=== PATIENT | male | born 1965 | race Caucasian/White ===

== ENCOUNTER → 2016-07-16 | Outpatient (CLI) | payer BC ==
[~2016-07-16] MED LIST: CPR500T PO; HYDR-3583 PO; METR500T PO; MULT-241 PO
--- NOTE | 2016-07-16 16:50 | Diagnostic Imaging Report ---
EXAMINATION: Three views of the lumbar spine. INDICATION: Back pain. FINDINGS: There is suggestion of a mild compression fracture at the T12 level. There is vertebral body height loss seen at T12 suggested based on the CT scan of the abdomen and pelvis of 2010. This could be chronic. There are preserved vertebral body heights in the lumbar spine. The discs demonstrate moderate disc height loss and degenerative sclerosis at L5-S1 with minimal posterior osteophytes. Vacuum phenomenon is also seen. The other disc levels appear normal. The SI joints appear unremarkable. IMPRESSION: 1. Degenerative disc changes with suggestion of small posterior osteophytes at L5-S1. 2. Mild compression fracture of T12, favored to be chronic. 3. Consider MRI of the lumbar spine if symptoms persist. Dictated by: Dictated on workstation # [id number]
== END ==
LOC: RAD 16:22
DX: M51.37 Other intervertebral disc degeneration, lumbosacral region (principal)
CPT/HCPCS: 72100

== ENCOUNTER → 2016-07-18 | Outpatient (CLI) | payer BC ==
--- NOTE | 2016-07-18 09:25 | Diagnostic Imaging Report ---
PROCEDURE: CT abdomen and pelvis without contrast. TECHNIQUE: Multiple contiguous axial images were obtained through the abdomen and pelvis without the use of intravenous contrast. INDICATION: Right lower quadrant pain. FINDINGS: The lung bases are clear. Liver appears normal. There is a tiny calculus layering out in the dependent portion of the gallbladder. Common duct is not dilated. Pancreas appears normal. Spleen is not enlarged. Adrenals are normal. There is a 2 mm calculus in the lower pole calyx of left kidney. There is a small cyst in the lateral aspect of the right kidney. There is calcific atherosclerosis of the aorta but no aneurysm. There is no evidence for appendicitis. Small bowel is not dilated. Colon appears normal. There is no intraperitoneal free air or free fluid. Urinary bladder and prostate appear normal. IMPRESSION: Atherosclerosis. Cholecystolithiasis. Left nephrolithiasis. No acute abnormality seen. Dictated by: Dictated on workstation # [id number]
--- NOTE | 2016-07-18 10:43 | Diagnostic Imaging Report ---
PROCEDURE: MRI lumbar spine. TECHNIQUE: Multiplanar, multisequence MRI of the lumbar spine was performed without contrast. INDICATION: Low back pain. FINDINGS: There is satisfactory alignment of the lumbar spine. The vertebral body heights are preserved. There is mild disc desiccation at all levels more prominent in the lower lumbar spine. There is also moderate disc height loss at L5/S1. Multilevel Schmorl's nodes are seen which appears to be chronic. There are Modic type I and III changes along the endplates around L5/S1 disc with no suspicious marrow signal abnormality. The cauda equina and conus medullaris appear grossly unremarkable. T12/L1: No disc herniation, no spinal canal or foraminal stenosis. L1/2: No disc herniation, no spinal canal or foraminal stenosis. L2/3: No disc herniation, no spinal canal or foraminal stenosis. L3/4: No disc herniation, no spinal canal or foraminal stenosis. L4/5: There is a mild disc bulge. There is mild to moderate facet and ligamentous hypertrophy. No central canal stenosis. There is mild stenosis of the left lateral recess. The right lateral recess is patent. There is minimal stenosis in the neural foramina. L5/S1: There is a diffuse disc bulge with a superimposed central protrusion associated with an annular tear and minimal caudal migration component. There is mild facet hypertrophy bilaterally. No central canal or lateral recess stenosis. The foramina demonstrate mild to moderate narrowing bilaterally. IMPRESSION: Prominent disc herniation at L5/S1 level with no significant spinal canal stenosis. No high-grade spinal canal or foraminal stenosis seen at any level. Dictated by: Dictated on workstation # [id number]
== END ==
LOC: RAD 08:56
DX: R10.31 Right lower quadrant pain (principal); N20.0 Calculus of kidney; K80.10 Calculus of gallbladder with chronic cholecystitis without obstruction; M51.27 Other intervertebral disc displacement, lumbosacral region
CPT/HCPCS: 72148; 74176

== ENCOUNTER → 2016-07-31 | Outpatient (CLI) | payer BC ==
[~2016-07-31] MED LIST changes: +CETI10TA20 PO; +CITA10TA7 PO; +LEVO75TA6 PO; +MONT10TA24 PO
--- NOTE | 2016-07-31 14:31 | Diagnostic Imaging Report ---
EXAMINATION: DEXA scan. INDICATION: Osteopenia TECHNIQUE: Bone mineral density estimated based on dual energy radiography over the lumbar spine and femoral necks, was performed. FINDINGS: The lumbar spine T-score is -0.6. T score over the left femoral neck is -0.5 and on the right side is -0.7. IMPRESSION: Bone mineral density is near the lower limits of normal. Dictated by: Dictated on workstation # [id number]
== END ==
LOC: RAD 10:08
DX: M81.0 Age-related osteoporosis without current pathological fracture (principal)
CPT/HCPCS: 77080

== ENCOUNTER 2016-08-01 06:19 | Outpatient (CLI) | payer BC ==
[~2016-08-01] VITALS: Ht 172.7 cm; Wt 86.2 kg
[~2016-08-01 06:19] MED LIST changes: -CETI10TA20 PO; -CITA10TA7 PO; -LEVO75TA6 PO; -MONT10TA24 PO
[2016-08-01] MEDS ORDERED: CITA10TA7 PO (11:23)
[2016-08-01] MEDS ORDERED: LEVO75TA6 PO (11:23)
[2016-08-01] MEDS ORDERED: MONT10TA24 PO (11:23)
[2016-08-01] MEDS ORDERED: CETI10TA20 PO (11:23)
== END 2016-08-01 11:28 ==
LOC: PREOP 06:19
PROVIDERS: ATTEND Surgery
DX: Z01.818 Encounter for other preprocedural examination (principal); I50.9 Heart failure, unspecified; K62.5 Hemorrhage of anus and rectum; Z86.010 Personal history of colon polyps

== ENCOUNTER 2016-08-04 10:52 | Day surgery (SDC) | payer BC ==
[~2016-08-04] VITALS: Ht 172.7 cm; Wt 86.2 kg
[~2016-08-04 10:52] MED LIST changes: +CETI10TA20 PO; +CITA10TA7 PO; +LEVO75TA6 PO; +MONT10TA24 PO
[2016-08-04] MEDS ORDERED: NS IV 500 ML 500 ML ONE (10:58)
[2016-08-04] MEDS ORDERED: NALOXONE 0.4 MG/ML 1 ML (NARCAN) VIAL IVP PRN (11:15)
[2016-08-04] MEDS ORDERED: NS IV 500 ML 500 ML IV PRN (11:15)
[2016-08-04] MEDS ORDERED: HURRICAINE EXT TUBE (BENZOCAINE) XX PRN (11:15)
[2016-08-04] MEDS ORDERED: FLUMAZENIL (ROMAZICON) 0.1 MG/ML 5 ML VIAL INJ PRN (11:15)
[2016-08-04 11:51] VITALS: BP 136/84
[2016-08-04] MEDS ORDERED: fentaNYL INJECTION 100 MCG/2 ML AMP ONE ×2 (12:14)
[2016-08-04] MEDS ORDERED: MIDAZOLAM 2 MG/2 ML (VERSED) VIAL ONE ×4 (12:14→12:15)
[2016-08-04] MEDS ORDERED: HURRICAINE EXT TUBE (BENZOCAINE) ONE (12:15)
--- NOTE | 2016-08-04 12:17 | Conscious Sedation/ASA ---
Conscious Sedation Pre-Proced Time Reviewed: 12:17 ASA Class: 2 Airway Mallampati Classification: ([place] appropriate class) I. II. III, IV Lungs Heart ASA score ASA 1: a normal healthy patient ASA 2: a patient with a mild systemic disease (mid diabetes, controlled hypertension, obesity ASA 3: a patient with a severe systemic disease that limits activity (angina , COPD, prior Myocardial infarction) ASA 4: a patient with an incapacitating disease that is a constant threat to life (CHF, renal failure) ASA 5: a moribund patient not expected to survive 24 hrs. (ruptured aneurysm) ASA 6: a declared brain patient whose organs are being harvested. For emergent operations, add the letter E after the classification Grade 2 Sedation Plan: Discussed options with patient/fam Note The patient is an appropriate candidate to undergo the planned procedure, sedation, and anesthesia. The patient immediately re-assessed prior to indication. ANDREIA ZACARIAS MD Aug 04, 2016 12:17 pm
[2016-08-04] MEDS: fentaNYL INJECTION 100 MCG/2 ML AMP IVP PRN ×4 (12:24→12:40)
[2016-08-04] MEDS: MIDAZOLAM 2 MG/2 ML (VERSED) VIAL IVP PRN ×4 (12:25→12:41)
--- NOTE | 2016-08-04 12:53 | Endoscopy Procedure Report ---
Endoscopy Report Date: Aug 04, 2016 Preoperative Diagnosis: iron deficiency anemia. Rectal bleeding Study Performed: Upper Endoscopy, Colonoscopy Procedure Instrument: Endoscope Endo Procedure/Findings Findings 1.: Internal Hemorrhoids, Gastric Ulcer Recommendations: Recommendations: 1.: Start Medication(s) Copy Copies To 1: THERESE CALDWELL MD, XAVIER M MD Aug 04, 2016 12:53 pm
[2016-08-04] MEDS ORDERED: PANT40TA2 PO (12:55)
--- NOTE | 2016-08-04 12:57 | Discharge Inst-Simple/Standard ---
Discharge Inst-Standard Discharge Medications New, Converted or Re-Newed RX: RX on Chart Patient Instructions/Follow Up Plan of Care/Instructions/FU: ffollow-up with his primary. To avoid nonsteroidals Activity as Tolerated: Yes Discharge Diet: No Restrictions ANDREIA ZACARIAS MD Aug 04, 2016 12:56 pm
[2016-08-04 13:30] VITALS: BP 125/78
[2016-08-04 14:00] VITALS: BP 111/75
--- NOTE | 2016-08-04 23:56 | OPERATIVE REPORT ---
DATE OF SERVICE: 08/04/2016 PROCEDURES: 1. Upper GI endoscopy with antral biopsy. 2. Colonoscopy. SURGEON: Andreia Zacarias M.D. INDICATION FOR PROCEDURE: This gentleman came in for an upper endoscopy to evaluate iron deficiency anemia. Colonoscopy to investigate intermittent rectal bleeding. Informed consent was obtained after reviewing the procedures in detail. DESCRIPTION OF PROCEDURE: Upper GI endoscopy/antral biopsy: He was placed in left lateral decubitus position and his vital signs were monitored. Conscious sedation was achieved using Versed and fentanyl. The flexible gastroscope was then introduced down the esophagus, past through the stomach, into the proximal duodenum. FINDINGS: ESOPHAGUS: A short hiatal hernia with minimal esophagitis. STOMACH: A total of 3 distal gastric erosions with erythema around them were found. Biopsy for H. pylori was obtained. DUODENUM: Changes of duodenitis were found along the first part. He tolerated the procedure well and was turned around in preparation for colonoscopy. IMPRESSION: Iron deficiency anemia, distal gastric erosions. Helicobacter status pending. PROCEDURE Colonoscopy. Examination of the perianal area was negative for any fissure, which the patient reported in the past. Digital examination was otherwise unremarkable. The colonoscope was then introduced into the rectum and advanced all the way up to the cecum. The scope was then withdrawn slowly and the mucosa examined in a systematic fashion. FINDINGS: Internal hemorrhoids, the source of his bleeding, but no polyps were found. He tolerated the procedures well and was taken back to the nursing area in stable condition. IMPRESSION: Rectal bleeding due to hemorrhoids. No polyps. Job ID: [id number] DocumentID: [id number] Dictated Date: 08/04/2016 12:53:21 Professor Of Theatre Date: 08/04/2016 23:33:52 Dictated By: ANDREIA ZACARIAS MD [facility]
== END 2016-08-04 14:30 | disposition home or self-care (01) ==
LOC: ENDO 10:52
PROVIDERS: ATTEND Surgery
DX: K25.7 Chronic gastric ulcer without hemorrhage or perforation (principal); K64.8 Other hemorrhoids; D50.9 Iron deficiency anemia, unspecified; Z86.010 Personal history of colon polyps

== ENCOUNTER 2016-08-04 10:58 | Outpatient (RCR) | payer BC ==
[2016-07-25] MEDS: IRON SUCROSE 200 MG/NS 100 ML (IVPB) IV SCH ×2 (13:50)
[2016-07-25 14:45] VITALS: BP 130/84
[2016-07-28] MEDS: IRON SUCROSE 200 MG/NS 100 ML (IVPB) IV SCH ×2 (12:45)
[2016-07-28 13:10] VITALS: BP 130/74
[2016-07-30] MEDS: IRON SUCROSE 200 MG/NS 100 ML (IVPB) IV SCH ×2 (13:50)
[2016-07-30 14:17] VITALS: BP 132/80
[2016-08-01] MEDS: IRON SUCROSE 200 MG/NS 100 ML (IVPB) IV SCH ×2 (13:54)
[2016-08-01 14:20] VITALS: BP 126/89
--- NOTE | 2016-08-01 16:43 | Physician Query-Final Dx ---
NATHAN STEPHEN 08/01/16 1643: Clinic Account Progress/Dx Physician Query: Please give diagnosis Please give a diagnosis for the Venofer treatment thank you Date of Service Aug 01, 2016 at 13:42 ANDREW ALVAREZ 08/22/16 0901: NATHAN STEPHEN Aug 01, 2016 16:43 ANDREW ALVAREZ Aug 22, 2016 09:01
[~2016-08-04] VITALS: Ht 172.7 cm; Wt 86.2 kg
[~2016-08-04 10:58] MED LIST changes: +IRON SUCROSE 200 MG/10 ML (VENOFER) VIAL IV ONE; +NS (IVPB) 100 ML ONE; +NS (IVPB) 50 ML ONE
[2016-08-04] MEDS: IRON SUCROSE 200 MG/NS 100 ML (IVPB) IV SCH ×2 (11:10)
[2016-08-04 11:40] VITALS: BP 136/84
[2016-08-04] MEDS ORDERED: PANT40TA2 PO (12:55)
== END 2016-10-23 | disposition home or self-care (01) ==
LOC: SDC 10:58
DX: D50.8 Other iron deficiency anemias (principal)
CPT/HCPCS: 96365

== ENCOUNTER 2016-11-01 14:45 | Emergency (ER) | payer BC ==
[~2016-11-01] VITALS: Ht 172.7 cm; Wt 86.2 kg
[~2016-11-01 14:45] MED LIST changes: -IRON SUCROSE 200 MG/10 ML (VENOFER) VIAL IV ONE; -NS (IVPB) 100 ML ONE; -NS (IVPB) 50 ML ONE; +PANT40TA2 PO
[2016-11-01] MEDS ORDERED: FLUT16SP22 (15:46)
[2016-11-01] MEDS ORDERED: HYDR-3820 (15:46)
[2016-11-01] MEDS ORDERED: LEVO100T7 (15:46)
[2016-11-01] MEDS ORDERED: morphine INJ 10 MG/ML 1ML (SYR OR VIAL) IM STA (15:50)
--- NOTE | 2016-11-01 15:53 | ED Upper Extremity ---
General Chief Complaint: Upper Extremity Stated Complaint: RT ARM PAIN POST SURGERY Nursing Triage Note: ARRIVED VIA AMB TO ROOM 09. COMPLAINS OF SEVERE RIGHT ELBOW PAIN WITH SWELLING INTO HAND. PT HAD SURGERY ON ELBOW YESTERDAY AT [facility]. STATES HE HAS BEEN TAKING HYDROCODONE 10'S THAT ARE NOT HELPING. LAST DOSE WAS AT 1230. 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 Nursing Sepsis Screen: No Definite Risk Allergies and Home Medications Allergies Coded Allergies: Penicillins (Unverified Allergy, Unknown, 08/01/16) Sulfa (Sulfonamide Antibiotics) (Unverified Allergy, Unknown, 08/01/16) Home Medications Fluticasone Propionate 16 Gm [place].susp, (Reported) Hydrocodone/Acetaminophen 1 Each Tablet, (Reported) Levothyroxine Sodium 100 Mcg Tablet, (Reported) Pantoprazole Sodium 40 Mg Tablet.dr, 40 MG PO DAILY for 30 Days, #30 Ref 5 Prescribed by: ANDREIA ZACARIAS on 08/04/16 1255 Past Rbmdlpp-Zmammh-Trript Hx Patient Social History Alcohol Use: Occasionally Uses Number of Drinks Today: AA Alcohol Beverage of Choice: Beer Recreational Drug Use: No Smoking Status: Former Smoker Type Used: Cigarettes Recent Foreign Travel: No Contact w/Someone Who Travel: No Recent Infectious Disease Expo: No Recent Hopitalizations: No Seasonal Allergies Seasonal Allergies: Yes Surgeries History of Surgeries: Yes Surgeries: Appendectomy, Orthopedic Respiratory History of Respiratory Disorde: No Cardiovascular History of Cardiac Disorders: No Neurological History of Neurological Disord: No Reproductive System Hx Reproductive Disorders: No Sexually Transmitted Disease: No HIV/AIDS: No Genitourinary History of Genitourinary Disor: No Gastrointestinal History of Gastrointestinal Di: Yes Gastrointestinal Disorders: Polyps Musculoskeletal History of Musculoskeletal Dis: No Endocrine History of Endocrine Disorders: Yes Endocrine Disorders: Hypothyroidsim HEENT Loss of Vision: Bilateral Hearing Impairment: Denies Cancer History of Cancer: No Psychosocial History of Psychiatric Problem: Yes Behavioral Health Disorders: Depression Integumentary History of Skin or Integumenta: No Blood Transfusions History of Blood Disorders: Yes (IRON DEFICIENCY ANEMIA) Adverse Reaction to a Blood Tr: No Physical Exam Vital Signs Vital Sign - Last 12Hours 11/01/16 15:30 Temp 98.0 Pulse 69 Resp 18 B/P (MAP) 139/89 Pulse Ox 99 Capillary Refill : Less Than 3 Seconds Progress/Results/Core Measures Results/Orders My Orders Orders - TALIA VERA DO Morphine Injection (Morphine Injection (11/01/16 15:50) Vital Signs/I&O Vital Sign - Last 12Hours 11/01/16 15:30 Temp 98.0 Pulse 69 Resp 18 B/P (MAP) 139/89 Pulse Ox 99 Blood Pressure Mean: 106 Departure Impression Impression: Primary Impression: POST OP PAIN RIGHT ELBOW Disposition: HOME, SELF-CARE Condition: Stable Departure-Patient Inst. Referrals: THERESE CALDWELL MD (PCP/Family) Primary Care Physician DEANNA MENDOZA DO Patient Instructions: Managing Pain After Surgery, Postoperative Pain (DC) Add. Discharge Instructions: CONTINUE ALL PREVIOUS POST OP INSTRUCTIONS STOP HYDROCODONE FOLLOW UP WITH DR MENDOZA ON THURSDAY FOR FURTHER CARE RETURN TO ER IF SYMPTOMS WORSEN All discharge instructions reviewed with patient and/or family. Voiced understanding. Scripts Oxycodone HCl/Acetaminophen (Oxycodone-Acetaminophen 10-300) 1 Each Tablet 1 EACH PO Q4H for Pain, #20 TAB Prov: TALIA VERA DO 11/01/16 TALIA VERA DO Nov 01, 2016 15:52
[2016-11-01] MEDS ORDERED: [UNRECOGNIZED DRUG - CODE] PO (15:56)
[2016-11-01 16:35] VITALS: BP 159/89
== END 2016-11-01 16:35 | disposition home or self-care (01) ==
LOC: EDUNIT# 14:45 → ER 14:47
DX: G89.18 Other acute postprocedural pain (principal); M25.521 Pain in right elbow; E03.9 Hypothyroidism, unspecified; F32.9 Major depressive disorder, single episode, unspecified; Z86.010 Personal history of colon polyps; Z98.890 Other specified postprocedural states; Z87.891 Personal history of nicotine dependence; Z90.49 Acquired absence of other specified parts of digestive tract
CPT/HCPCS: 99284